=== PATIENT | male | born 1980 | race Caucasian/White ===

== ENCOUNTER 2018-01-31 20:28 | Emergency (ER) | payer SELFPAY ==
[2018-01-31 22:22] LABS: ABS Basophils 0.1 10^3/ul (0-0.2); ABS Eosinophils 0.7 10^3/ul (0-0.6); ABS Lymphocytes 2.9 10^3/ul (1.0-4.8); ABS Monocytes 0.7 10^3/ul (0-0.8); ABS Neutrophils 8.2 10^3/ul (1.5-7.7); ABS Nucleated RBC 0.1 10^3/ul; Eosinophil % 5.8 % (0-6); Hematocrit 45 % (42-52); Hemoglobin 15.6 g/dl (14.0-18.0); Lymphocyte % 22.9 % (25-47); Mean Corpuscular HGB Conc 35 g/dl (31-36); Mean Corpuscular Hemoglobin 31 pg (27-31); Mean Corpuscular Volume 88 fL (80-94); Mean Platelet Volume 7.7 um3 (7.4-10.4); Nucleated Red Blood Cells % 0.4; Platelet Count 227 10^3/ul (150-450); Red Blood Count 5.08 10^6/ul (4.00-5.40); Red Cell Distribution Width 13 % (10.5-15); White Blood Count 12.6 10^3/ul (3.5-10.8)
[2018-01-31 22:39] LABS: EGFR Non-African American 88.6 (>60)
[2018-02-01 00:24] LABS: Urine Appearance Cloudy; Urine Blood Negative (Negative); Urine Color Yellow; Urine Ketones Negative (Negative); Urine Protein 1+(30 mg/dL) (Negative); Urine Specific Gravity 1.034 (1.010-1.030); Urine Urobilinogen Negative (Negative)
[2018-02-01 00:27] LABS: Urine Red Blood Cell 1+(3-5/hpf) (Absent); Urine White Blood Cell Trace(0-5/hpf) (Absent)
[2018-02-01] MEDS ORDERED: NS 0.9% 1000 ML* 1,000 ML IV ONE (01:11)
[2018-02-01] MEDS ORDERED: Morphine INJ* 4 MG/ML 1 ML SYRINGE (NEW SYRINGE VERSION) IV ONE (01:11)
[2018-02-01] MEDS ORDERED: Metoclopramide IV* 5 MG/ML 2 ML VIAL IV SLOW PU ONE (01:12)
[2018-02-01] MEDS ORDERED: Ketorolac INJ* 30 MG/ML 1 ML VIAL IV PUSH ONE (01:12)
--- NOTE | 2018-02-01 02:26 | RAD ---
EXAM: CT Abdomen and Pelvis Without Intravenous Contrast CLINICAL HISTORY: 37 years old, male; Pain; Abdominal pain; Generalized; Additional info: Abd pain TECHNIQUE: Axial computed tomography images of the abdomen and pelvis without intravenous contrast. All CT scans at this facility use at least one of these dose optimization techniques: automated exposure control; mA and/or kV adjustment per patient size (includes targeted exams where dose is matched to clinical indication); or iterative reconstruction. Coronal and sagittal reformatted images were created and reviewed. COMPARISON: No relevant prior studies available. FINDINGS: Lung bases: Unremarkable. No mass. No consolidation. ABDOMEN: Liver: Unremarkable. Gallbladder and bile ducts: The gallbladder is collapsed. No calcified gallstone. No ductal dilation. Pancreas: Unremarkable. No ductal dilation. Spleen: Unremarkable. No splenomegaly. Adrenals: Unremarkable. No mass. Kidneys and ureters: Unremarkable. No obstructing stones. No hydronephrosis. Stomach and bowel: cm. Distended with fluid fluid and air. No gastric wall thickening. The duodenum appears normal. Occasional colonic diverticula without evidence of acute diverticulitis. No bowel obstruction. No bowel wall thickening. PELVIS: Appendix: No findings to suggest acute appendicitis. Bladder: Unremarkable. No stones. Reproductive: Unremarkable as visualized. ABDOMEN and PELVIS: Intraperitoneal space: No free intra-abdominal fluid or air. Bones/joints: No acute fracture. No dislocation. Soft tissues: Unremarkable. Vasculature: Calcification the wall of the abdominal aorta. No aneurysmal dilatation. Lymph nodes: Unremarkable. No enlarged lymph nodes. IMPRESSION: No acute findings.
[2018-02-01] MEDS ORDERED: oxyCODONE/Acetamin 5/325 MG* TAB PO ONE (02:47)
--- NOTE | 2018-02-01 02:49 | ED ---
Back Pain - HPI Summary HPI Summary: Patient is a 37 y/o M w/ c/o right lower back pain and RLQ pain onsetting two weeks ago. Pain has progressively worsened since onset. In room, he denies N/V. Patient was seen at [facility] one week ago, received CT ab/pel. He was told CT was negative, received Dx of pulled muscle. He was prescribed a pain killer, voltaren, but reports no relief in Sx. On triage, pain is rated 7/10. Pain is aggravate by position and movement. Home medications and allergies are reviewed. - History of Current Complaint Chief Complaint: Evelin Stated Complaint: RT SIDE PAIN Time Seen by Provider: 02/01/18 00:53 Hx Obtained From: Patient Onset/Duration: Lasting Weeks - two weeks, Still Present, Worse Since Onset/Duration: Started Weeks Ago - two weeks, Still Present, Worse Since Timing: Constant, Lasting Weeks - two weeks Back Pain Location: Is Discrete @ - RLQ, right lower back Severity Currently: Moderate - 7/10 Pain Intensity: 7 Pain Scale Used: 0-10 Numeric - 7/10 Aggravating Symptom(s): Movement, Other - position Alleviating Symptom(s): Nothing Associated Signs And Symptoms: Positive: Abdominal Pain - RLQ, Other - right lower back pain - Allergies/Home Medications Allergies/Adverse Reactions: Allergies Allergy/AdvReac Type Severity Reaction Status Date / Time bee venom protein (honey bee) Allergy Swelling Verified 01/31/18 20:41 environmental Allergy Unknown Uncoded 01/31/18 20:41 Reaction Details PMH/Surg Hx/FS Hx/Imm Hx Cardiovascular History: Reports: Other Cardiovascular Problems/Disorders - STATES DOESN'T BRUISE EASILY Sensory History: Denies: Hx Contacts or Glasses, Hx Hearing Aid Opthamlomology History: Denies: Hx Contacts or Glasses - Surgical History Surgery Procedure, Year, and Place: steel plate for left collarbone Infectious Disease History: No Infectious Disease History: Denies: Hx Clostridium Difficile, Hx Hepatitis, Hx Human Immunodeficiency Virus (HIV), Hx of Known/Suspected MRSA, Hx Shingles, Hx Tuberculosis, Hx Known/ Suspected VRE, Hx Known/Suspected VRSA, History Other Infectious Disease, Traveled Outside the [place] in Last 30 Days - Family History Known Family History: Negative: Diabetes - Social History Alcohol Use: Occasionally Substance Use Type: Reports: None Smoking Status (MU): Light Every Day Tobacco Smoker Amount Used/How Often: 1/2- 1 PPD X 15 YEARS Length of Time of Smoking/Using Tobacco: 11 months Review of Systems Positive: Abdominal Pain - RLQ pain . Negative: Vomiting, Nausea Positive: Other - right lower back pain All Other Systems Reviewed And Are Negative: Yes Physical Exam - Summary Physical Exam Summary: VITAL SIGNS: Reviewed. GENERAL: Patient is a well-developed and nourished male who is lying comfortable in the stretcher. Patient is not in any acute respiratory distress. Tenderness over right lower back is noted, pain induced by 60 degree right leg elevation. HEAD AND FACE: No signs of trauma. No ecchymosis, hematomas or skull depressions. No sinus tenderness. EYES: PERRLA, EOMI x 2, No injected conjunctiva, no nystagmus. EARS: Hearing grossly intact. Ear canals and tympanic membranes are within normal limits. MOUTH: Oropharynx within normal limits. NECK: Supple, trachea is midline, no adenopathy, no JVD, no carotid bruit, no c- spine tenderness, neck with full ROM. CHEST: Symmetric, no tenderness at palpation LUNGS: Clear to auscultation bilaterally. No wheezing or crackles. CVS: Regular rate and rhythm, S1 and S2 present, no murmurs or gallops appreciated. ABDOMEN: Soft, RLQ tenderness. No signs of distention. No rebound no guarding, and no masses palpated. Bowel sounds are normal. EXTREMITIES: FROM in all major joints, no edema, no cyanosis or clubbing. NEURO: Alert and oriented x 3. No acute neurological deficits. Speech is normal and follows commands. SKIN: Dry and warm Triage Information Reviewed: Yes Vital Signs On Initial Exam: Initial Vitals Temp Pulse Resp BP Pulse Ox 98.9 F 112 16 121/79 97 01/31/18 20:37 01/31/18 20:37 01/31/18 20:37 01/31/18 20:37 01/31/18 20:37 Vital Signs Reviewed: Yes Diagnostics - Vital Signs Vital Signs Temp Pulse Resp BP Pulse Ox 01/31/18 22:39 98.4 F 98 16 120/74 98 01/31/18 20:37 98.9 F 112 16 121/79 97 - Laboratory Lab Results: Lab Results 01/31/18 01/31/18 01/31/18 Range/Units 22:11 22:11 22:11 WBC 12.6 H (3.5-10.8) 10^3/ul RBC 5.08 (4.00-5.40) 10^6/ul Hgb 15.6 (14.0-18.0) g/dl Hct 45 (42-52) % MCV 88 (80-94) fL MCH 31 (27-31) pg MCHC 35 (31-36) g/dl RDW 13 (10.5-15) % Plt Count 227 (150-450) 10^3/ul MPV 7.7 (7.4-10.4) um3 Neut % (Auto) 65.1 (38-83) % Lymph % (Auto) 22.9 L (25-47) % Forest % (Auto) 5.3 (0-7) % Eos % (Auto) 5.8 (0-6) % Baso % (Auto) 0.9 (0-2) % Absolute Neuts (auto) 8.2 H (1.5-7.7) 10^3/ul Absolute Lymphs (auto) 2.9 (1.0-4.8) 10^3/ul Absolute Monos (auto) 0.7 (0-0.8) 10^3/ul Absolute Eos (auto) 0.7 H (0-0.6) 10^3/ul Absolute Basos (auto) 0.1 (0-0.2) 10^3/ul Absolute Nucleated RBC 0.1 10^3/ul Nucleated RBC % 0.4 Sodium 140 (135-145) mmol/L Potassium 4.0 (3.5-5.0) mmol/L Chloride 105 (101-111) mmol/L Carbon Dioxide 29 (22-32) mmol/L Anion Gap 6 (2-11) mmol/L BUN 15 (6-24) mg/dL Creatinine 0.96 (0.67-1.17) mg/dL Est GFR ( Amer) 107.2 (>60) Est GFR (Non-Af Amer) 88.6 (>60) BUN/Creatinine Ratio 15.6 (8-20) Glucose 127 H (70-100) mg/dL Lactic Acid 1.5 (0.5-2.0) mmol/L Calcium 9.1 (8.6-10.3) mg/dL Total Bilirubin 0.30 (0.2-1.0) mg/dL AST 19 (13-39) U/L ALT 15 (7-52) U/L Alkaline Phosphatase 76 (34-104) U/L C-Reactive Protein 1.03 (<8.01) mg/L Total Protein 6.1 L (6.4-8.9) g/dL Albumin 4.1 (3.2-5.2) g/dL Globulin 2.0 (2-4) g/dL Albumin/Globulin Ratio 2.1 (1-3) Lipase 22 (11.0-82.0) U/L Urine Color Urine Appearance Urine pH (5-9) Ur Specific [place] (1.010-1.030) Urine Protein (Negative) Urine Ketones (Negative) Urine Blood (Negative) Urine Nitrate (Negative) Urine Bilirubin (Negative) Urine Urobilinogen (Negative) Ur Leukocyte Esterase (Negative) Urine WBC (Auto) (Absent) Urine RBC (Auto) (Absent) Urine Bacteria (Absent) Urine Glucose (Negative) 02/01/18 Range/Units 00:00 WBC (3.5-10.8) 10^3/ul RBC (4.00-5.40) 10^6/ul Hgb (14.0-18.0) g/dl Hct (42-52) % MCV (80-94) fL MCH (27-31) pg MCHC (31-36) g/dl RDW (10.5-15) % Plt Count (150-450) 10^3/ul MPV (7.4-10.4) um3 Neut % (Auto) (38-83) % Lymph % (Auto) (25-47) % Forest % (Auto) (0-7) % Eos % (Auto) (0-6) % Baso % (Auto) (0-2) % Absolute Neuts (auto) (1.5-7.7) 10^3/ul Absolute Lymphs (auto) (1.0-4.8) 10^3/ul Absolute Monos (auto) (0-0.8) 10^3/ul Absolute Eos (auto) (0-0.6) 10^3/ul Absolute Basos (auto) (0-0.2) 10^3/ul Absolute Nucleated RBC 10^3/ul Nucleated RBC % Sodium (135-145) mmol/L Potassium (3.5-5.0) mmol/L Chloride (101-111) mmol/L Carbon Dioxide (22-32) mmol/L Anion Gap (2-11) mmol/L BUN (6-24) mg/dL Creatinine (0.67-1.17) mg/dL Est GFR ( Amer) (>60) Est GFR (Non-Af Amer) (>60) BUN/Creatinine Ratio (8-20) Glucose (70-100) mg/dL Lactic Acid (0.5-2.0) mmol/L Calcium (8.6-10.3) mg/dL Total Bilirubin (0.2-1.0) mg/dL AST (13-39) U/L ALT (7-52) U/L Alkaline Phosphatase (34-104) U/L C-Reactive Protein (<8.01) mg/L Total Protein (6.4-8.9) g/dL Albumin (3.2-5.2) g/dL Globulin (2-4) g/dL Albumin/Globulin Ratio (1-3) Lipase (11.0-82.0) U/L Urine Color Yellow Urine Appearance Cloudy Urine pH 5.0 (5-9) Ur Specific [place] 1.034 H (1.010-1.030) Urine Protein 1+(30 mg/dl) A (Negative) Urine Ketones Negative (Negative) Urine Blood Negative (Negative) Urine Nitrate Negative (Negative) Urine Bilirubin Negative (Negative) Urine Urobilinogen Negative (Negative) Ur Leukocyte Esterase Negative (Negative) Urine WBC (Auto) Trace(0-5/hpf) (Absent) Urine RBC (Auto) 1+(3-5/hpf) A (Absent) Urine Bacteria Absent (Absent) Urine Glucose Negative (Negative) Result Diagrams: 01/31/18 22:11 01/31/18 22:11 Lab Statement: Any lab studies that have been ordered have been reviewed, and results considered in the medical decision making process. - CT CT abd/pel CT Interpretation: No Acute Changes CT Interpretation Completed By: Radiologist - no acute findings; this report was reviewed by ed physician Re-Evaluation - Re-Evaluation First Eval Re-Evaluation Time: 02:41 Comment: Discussed results of labs and CT with patient. He will be discharged to home and follow up with PCP and urologist in 1-2 days. Patient understands and is agreeable with this plan. Back Pain Course/Dx - Course Course Of Treatment: Patient is a 37 y/o M w/ c/o right lower back pain and RLQ pain onsetting two weeks ago. Pain has progressively worsened since onset. In room, he denies N/V. Patient was seen at [facility] one week ago, received CT ab/pel. He was told CT was negative, received Dx of pulled muscle. He was prescribed a pain killer, voltaren, but reports no relief in Sx. On triage, pain is rated 7/10. Pain is aggravated by position and movement. Physical exam showed tenderness over right side of back, mild RLQ tenderness, pain induced by right leg elevation at 60 degrees. During ED course, patient was given Percocet 5/325 tab PO ONCE. UA showed urine RBC 1+, urine protein 1+. Blood work was obtained with WBC 12.6. CT abd/pel showed no acute findings. Discussed results of labs and CT with patient. He will be discharged to home and follow up with PCP and urologist in 1-2 days. Patient understands and is agreeable with this plan. Dx of lower back pain, microscopic hematuria. - Diagnoses Provider Diagnoses: Lower back pain, Microscopic hematuria Discharge - Sign-Out/Discharge Documenting (check all that apply): Patient Departure - discharge - Discharge Plan Condition: Stable Disposition: HOME Patient Education Materials: Hematuria (ED), Back Pain (ED) Referrals: [facility] [Outside] - 2 Days Jarek Denton MD [Medical Doctor] - 2 Days Additional Instructions: RETURN TO THE EMERGENCY DEPARTMENT FOR CHANGING OR WORSENING SYMPTOMS. FOLLOW UP WITH PRIMARY CARE PHYSICIAN AND UROLOGIST IN 1-2 DAYS. - Attestation Statements Document Initiated by Scribe: Yes Documenting Scribe: Jacoby Pandya Provider For Whom Scribe is Documenting (Include Credential): Jacques Cunningham MD Scribe Attestation: Jacoby Solano, scribed for Jacques Cunningham MD on 02/01/18 at 0449.
[2018-02-01 02:56] VITALS: BP 156/90
== END 2018-02-01 02:55 | disposition home or self-care (01) ==
LOC: ED 20:28
DX: M54.5 Low back pain (principal); R31.29 Other microscopic hematuria; F17.290 Nicotine dependence, other tobacco product, uncomplicated
CPT/HCPCS: 36415; 74176; 80053; 81003; 81015; 83605; 83690; 85025; 86140; 87086; 96374; 96375; 99282; A9270-GY